=== PATIENT | female | born 1930 | race Caucasian/White ===

== ENCOUNTER → 2016-09-15 | Outpatient (CLI) | payer MEDICARE | LOC: GMAB 11:33 | PROVIDERS: ATTEND Family Medicine | DX: I10 Essential (primary) hypertension (principal) ==

== ENCOUNTER → 2017-09-20 | Outpatient (CLI) | payer MEDICARE | LOC: GMAB 11:29 | PROVIDERS: ATTEND Family Medicine | DX: I10 Essential (primary) hypertension (principal) ==

== ENCOUNTER → 2018-06-18 | Outpatient (CLI) | payer MEDICARE ==
--- NOTE | 2018-06-19 08:53 | MRI ---
EXAM DESCRIPTION: Lumbar Spine w/o Contrast : Magnetic Resonance Imaging. CLINICAL HISTORY: SCIATICA COMPARISON: None. TECHNIQUE: Multiplanar, multiple standard sequences, non contrast MRI, lumbar spine. FINDINGS: L5-S1: Disc desiccation moderate disc space loss with more loss to the left of midline type III Modic endplate changes with disc spur complex encroaching on the left foramen with stenosis. Moderate narrowing of the right foramen. Bilateral ligamentum flavum hypertrophy with mild facet arthrosis. Mild to moderate canal narrowing. L4-5: Advanced disc space loss with disc desiccation. Anterior Modic type II end plate reaction with spurs. Posterior disc bulge with spurs encroaching on the canal and bilateral descending L5 nerve roots. Larger posterior spur and disc bulge on the left with possible stenosis subarticular recess. AP canal diameter 7.5 mm. Right lateral bulging of disc and spurs with moderate narrowing of the right foramen. Similar findings on the left with the foramen nearly stenotic. Bilateral flavum ligament hypertrophy and facet arthrosis and hypertrophy. L3-4: Significant disc space loss with grade 1 anterolisthesis 6.5 mm. Anterior disc bulge and posterior disc bulge partially uncovered. Flavum ligament and facet arthrosis and hypertrophy bilaterally. Bilateral narrowing of the subarticular recesses. AP canal diameter 6.5 mm. Moderate to severe narrowing of the right foramen and moderate narrowing of the left foramen. Right posterior Modic type II endplate reactive changes. L2-3: Disc desiccation posterior disc space loss. Minimal anterior bulge. Schmorl's nodes superior and inferior endplate. Broad-based bulge abutting the thecal sac and the bilateral L3 nerve roots. Bilateral mild foraminal narrowing more on the left. Left facet arthrosis and bilateral ligament hypertrophy. AP canal diameter 9 mm. L1-2: Disc desiccation posterior broad-based bulge is minimal with superior and inferior endplate Schmorl's nodes larger inferior. Minimal flavum ligament hypertrophy and facet arthrosis bilaterally. Mild to moderate canal narrowing. Bilateral mild foraminal narrowing. T12-L1: Disc desiccation and disc space narrowing. Schmorl's nodes inferior L1 endplate. Minimal anterior disc bulge with tiny posterior bulge. Posterior elements unremarkable. Canal and foramina are patent. L2-L4 levoscoliosis. L3-L5 kyphosis. Paravertebral soft tissues show a cyst or fluid-filled structure as part of a larger soft tissue structure inferior and lateral to the lower pole of the right kidney. Possibly indicating an enlarged liver. Minimal paraspinal muscle atrophy bilaterally.. Otherwise normal marrow signal in the remaining vertebral bodies and the posterior elements. Vertebral bodies are not compressed at any level. IMPRESSION: 1. 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 Correlate for left L5 radiculopathy. Posterior elements with degenerative hypertrophic changes. Moderate canal narrowing. 2. Severe desiccation L4-5 disc with posterior disc bulge and spur encroaching on the thecal sac and left subarticular recess. Mild to moderate canal stenosis. Correlate for left L5 radiculopathy. 3. Grade 1 to grade 2 anterolisthesis L3-4. Multifactorial moderate canal l stenosis and moderate to severe right foraminal narrowing. Correlate for right L3 radiculopathy. 4. Posterior broad-based bulge L2-3 disc abutting the thecal sac and the bilateral L3 nerve roots with mild canal stenosis. Electronically signed by: John Rueda MD 06/19/2018 8:51 AM [facility]
== END ==
LOC: MRI 12:54
PROVIDERS: ATTEND Family Medicine
DX: M54.31 Sciatica, right side (principal); M51.26 Other intervertebral disc displacement, lumbar region; M43.16 Spondylolisthesis, lumbar region

== ENCOUNTER → 2018-10-11 | Outpatient (CLI) | payer MEDICARE | LOC: GMAE 10:42 | PROVIDERS: ATTEND Family Medicine | DX: I10 Essential (primary) hypertension (principal) ==

== ENCOUNTER → 2020-01-23 | Outpatient (CLI) | payer MEDICARE ==
--- NOTE | 2020-01-23 13:02 | RAD ---
EXAM DESCRIPTION: Right knee, 4 radiographs CLINICAL HISTORY: PAIN IN THE RIGHT KNEE FINDINGS/ IMPRESSION: Left total knee arthroplasty. Diffuse osteopenia. No fracture. No periprosthetic osteolysis Small suprapatellar joint effusion. Faint mineralization in the suprapatellar bursa may be dystrophic calcification related to chronic synovitis. Atherosclerotic vascular calcifications Electronically signed by: Bob Humphrey MD 01/23/2020 1:00 PM CDT
--- NOTE | 2020-01-23 14:06 | RAD ---
EXAM DESCRIPTION: Pelvis CLINICAL HISTORY: 89 years Female, PAIN IN THE RIGHT HIP COMPARISON: None. FINDINGS: Single view of the pelvis demonstrates advanced degenerative changes in the lower lumbar spine. Extensive vascular calcification within the pelvis and proximal lower extremities noted. Generalized mild osteopenia is present. Mild marginal osteophyte formation involving each lateral acetabulum is present with preserved hip joint. Mild age-appropriate degenerative changes on each side noted. IMPRESSION: Mild degenerative changes both hips without fracture or deformity. Electronically signed by: Bob Longo MD 01/23/2020 2:04 PM CDT
== END ==
LOC: RAD 09:24
PROVIDERS: ATTEND Orthopaedic Surgery
DX: M16.0 Bilateral primary osteoarthritis of hip (principal); M25.462 Effusion, left knee; Z96.652 Presence of left artificial knee joint; M25.862 Other specified joint disorders, left knee; M85.862 Other specified disorders of bone density and structure, left lower leg; I70.202 Unspecified atherosclerosis of native arteries of extremities, left leg